=== PATIENT | male | born 1990 | race Two or more races ===

== ENCOUNTER 2019-08-04 13:44 | Emergency (ER) | payer SELFPAY ==
--- NOTE | 2019-08-04 13:57 | EDM.PDOC ---
ED HPI GENERAL MEDICAL PROBLEM - General Stated Complaint: RT WRIST PAIN Time Seen by Provider: 08/04/19 13:54 Source of Information: Reports: Patient History Limitations: Reports: No Limitations - History of Present Illness INITIAL COMMENTS - FREE TEXT/NARRATIVE: Royal complains of rt wrist pain for 1.5 years. This has been worse last few days,radiation the forearm,causing numbness of his hand.Aleve and other otc NSAIDs have not provided relief. right wrist/hand Pain Score (Numeric/FACES): 7 - Related Data Allergies Allergy/AdvReac Type Severity Reaction Status Date / Time No Known Allergies Allergy Verified 08/04/19 14:34 Home Meds: Home Meds predniSONE 20 mg PO BID #10 tab 08/04/19 [Rx] Social & Family History - Family History Family Medical History: Noncontributory - Caffeine Use Caffeine Use: Reports: Coffee, Soda Review of Systems - Review of Systems Review Of Systems: Comprehensive ROS is negative, except as noted in HPI. ED EXAM, GENERAL - Physical Exam Exam: See Below Exam Limited By: No Limitations General Appearance: Alert, WD/WN Nose: Normal Inspection Extremities: Normal Inspection, Normal Range of Motion, Normal Capillary Refill , Arm Pain, Other (Phalen's test positive) Neurological: Alert, CN II-XII Intact Psychiatric: Normal Affect Skin Exam: Warm Course - Vital Signs Last Recorded V/S: Last Vital Signs Temp 97.3 F 08/04/19 14:00 Pulse 92 08/04/19 14:00 Resp 14 08/04/19 14:00 BP 127/74 08/04/19 14:00 Pulse Ox 99 08/04/19 14:00 Departure - Departure Time of Disposition: 14:35 Disposition: Home, Self-Care 01 Condition: Good Clinical Impression: Carpal tunnel syndrome - Discharge Information Prescriptions: predniSONE 20 mg PO BID #10 tab Instructions: Carpal Tunnel Syndrome Referrals: PCP,None [Primary Care Provider] - (See PCP in 1 week) Sepsis Event Note - Focused Exam Vital Signs: Vital Signs Temp Pulse Resp BP Pulse Ox 08/04/19 14:00 97.3 F 92 14 127/74 99 Date Exam was Performed: 08/04/19 Time Exam was Performed: 14:35 - Problem List & Annotations (1) Carpal tunnel syndrome SNOMED Code(s): 27919144 Code(s): G56.00 - CARPAL TUNNEL SYNDROME, UNSPECIFIED UPPER LIMB Status: Acute Current Visit: Yes Qualifiers: Laterality: right Qualified Code(s): G56.01 - Carpal tunnel syndrome, right upper limb - Problem List Review Problem List Initiated/Reviewed/Updated: Yes - Assessment/Plan Plan: Brace,Prednisone and follow up
== END 2019-08-04 14:20 | disposition home or self-care (01) ==
LOC: FB.ED 13:44
DX: G56.01 Carpal tunnel syndrome, right upper limb (principal)
CPT/HCPCS: 99283

== ENCOUNTER 2020-10-12 08:18 | Emergency (ER) | payer SELFPAY ==
[2020-10-12] MEDS ORDERED: Sertraline 100 MG Tab PO STA (08:26)
[2020-10-12] MEDS ORDERED: LORazepam 2 MG/ML SDV IM STA (08:26)
--- NOTE | 2020-10-12 08:35 | EDM.PDOC ---
ED HPI GENERAL MEDICAL PROBLEM - General Stated Complaint: ANXIETY Time Seen by Provider: 10/12/20 08:20 Source of Information: Reports: Patient History Limitations: Reports: No Limitations - History of Present Illness INITIAL COMMENTS - FREE TEXT/NARRATIVE: Patient presented to the ED because of an anxiety attack. He is hyperventilating and c/o dyspnea, perioral and peripheral numbness and tingling especially on martinez his hands. He was here 4 days ago for the same problem. He has a history of anxiety and depression and quit taking his Zoloft and Vistaril 5 months ago. Denies having any chest pain, nausea,vomiting. - Related Data Allergies Allergy/AdvReac Type Severity Reaction Status Date / Time No Known Allergies Allergy Verified 10/12/20 08:31 Home Meds: Home Meds predniSONE 20 mg PO BID #10 tab 08/04/19 [Rx] Sertraline [Zoloft] 100 mg PO DAILY #90 tab 10/12/20 [Rx] hydrOXYzine pamoate [Vistaril] 50 mg PO Q8H PRN #90 cap 10/12/20 [Rx] Social & Family History - Family History Family Medical History: No Pertinent Family History - Caffeine Use Caffeine Use: Reports: Coffee, Soda ED ROS GENERAL - Review of Systems Review Of Systems: See Below Constitutional: Reports: No Symptoms HEENT: Reports: No Symptoms Respiratory: Reports: Shortness of Breath Cardiovascular: Reports: No Symptoms Endocrine: Reports: No Symptoms GI/Abdominal: Reports: No Symptoms : Reports: No Symptoms Musculoskeletal: Reports: No Symptoms Skin: Reports: No Symptoms Neurological: Reports: No Symptoms, Gait Disturbance ED EXAM, GENERAL - Physical Exam Exam: See Below Exam Limited By: No Limitations General Appearance: Alert, No Apparent Distress Ears: Normal External Exam, Normal Canal Nose: Normal Inspection, Normal Mucosa Throat/Mouth: Normal Inspection, Normal Lips, Normal Teeth Head: Atraumatic, Normocephalic Neck: Normal Inspection, Supple, Non-Tender, Full Range of Motion Respiratory/Chest: No Respiratory Distress, Lungs Clear, Normal Breath Sounds Cardiovascular: Normal Peripheral Pulses, Regular Rate, Rhythm, No Edema, No Gallop GI/Abdominal: Normal Bowel Sounds, Soft, Non-Tender, No Organomegaly, No Distention, No Abnormal Bruit Back Exam: Normal Inspection, Full Range of Motion Extremities: Normal Inspection, Normal Range of Motion, Non-Tender #1 Interpretation EKG Date: 10/12/20 Time: 08:19 Rhythm: NSR Rate (Beats/Min): 98 [place]: Normal P-Wave: Present QRS: Normal ST-T: Normal QT: Normal Comparison: NA - No Prior EKG EKG Interpretation Comments: NSR Course - Vital Signs Text/Narrative:: EKG result was reviewed and discussed with patient EKG_NSR Ativan 1 mg IM x1 Vistaril 50 mg PO x1 Zoloft 100 mg PO x1 - Orders/Labs/Meds Meds: Medications Discontinued Medications Generic Name Dose Route Start Last Admin Trade Name Freq PRN Reason Stop Dose Admin Hydroxyzine Pamoate 50 mg 10/12/20 08:35 10/12/20 08:45 Hydroxyzine Pamoate 50 Mg Cap PO 10/12/20 08:36 50 mg NOW STA Administration Lorazepam 1 mg 10/12/20 08:26 10/12/20 08:36 Lorazepam 2 Mg/Ml Sdv IM 10/12/20 08:27 1 mg NOW STA Administration Sertraline HCl 100 mg 10/12/20 08:26 10/12/20 09:17 Sertraline 100 Mg Tab PO 10/12/20 08:27 100 mg NOW STA Administration Departure - Departure Time of Disposition: 09:20 Disposition: Home, Self-Care 01 Condition: Good Clinical Impression: Generalized anxiety disorder, Depression, Panic attack - Discharge Information Prescriptions: hydrOXYzine pamoate [Vistaril] 50 mg PO Q8H PRN #90 cap PRN Reason: Anxiety Sertraline [Zoloft] 100 mg PO DAILY #90 tab Instructions: Generalized Anxiety Disorder, Adult, Major Depressive Disorder, Adult, [id number], Panic Attack, [id number] Additional Instructions: Please read discharged instructions on anxiety/depression and anxiety/panic attack Take Zoloft 100 mg at bed time starting tonight Vistaril 50 mg, 1-2 tablets every 8 hours as needed for anxiety/panic attack Follow up with your primary doctor so he can refer you [place]
== END 2020-10-12 09:45 | disposition home or self-care (01) ==
LOC: FB.ED 08:18
DX: F41.0 Panic disorder [episodic paroxysmal anxiety] (principal); F41.1 Generalized anxiety disorder; F32.9 Major depressive disorder, single episode, unspecified; Z79.899 Other long term (current) drug therapy
CPT/HCPCS: 93005; 96372; 99283; 99283-25; A9270-GY; J2060

== ENCOUNTER 2021-07-16 23:39 | Emergency (ER) | payer SELFPAY ==
[2021-07-16] MEDS ORDERED: Lidocaine 2% Viscous Solution 15 ML UD PO ONE (23:40)
[2021-07-17] MEDS ORDERED: Amoxicillin 500 MG Cap PO ONE (00:02)
[2021-07-17] MEDS ORDERED: Ketorolac 30 MG/ML SDV IM ONE (00:02)
[2021-07-17] MEDS: Lidocaine 2% Viscous Solution 15 ML UD PO ONE ×2 (00:32→05:34)
== END 2021-07-17 00:45 | disposition home or self-care (01) ==
LOC: FB.ED 23:39
DX: K04.7 Periapical abscess without sinus (principal); K02.9 Dental caries, unspecified
CPT/HCPCS: 96372; 99282; 99283; A9270-GY; J1885

== ENCOUNTER 2021-12-04 06:30 | Emergency (ER) | payer SELFPAY ==
[2021-12-04] MEDS: Acetaminophen/HYDROcodone 325-5 MG Tab PO ONE (06:52)
[2021-12-04] MEDS: Ondansetron 4 MG Tab.DIS PO ONE (06:52)
[2021-12-04 07:14] LABS: ESTIMATED GFR 103 mL/min (>60)
[2021-12-04] MEDS: Alum Hydroxide/Mag Hydroxide 15 ML, Lidocaine 2% 15 ML PO ONE ×2 (07:55)
[2021-12-04] MEDS: Lidocaine 2% Viscous Solution 15 ML UD ONE (07:56)
== END 2021-12-04 08:30 | disposition home or self-care (01) ==
LOC: FB.ED 06:30
DX: K29.70 Gastritis, unspecified, without bleeding (principal); K29.80 Duodenitis without bleeding; R11.2 Nausea with vomiting, unspecified; F17.210 Nicotine dependence, cigarettes, uncomplicated; E66.9 Obesity, unspecified; Z86.16 Personal history of COVID-19; Z68.31 Body mass index [BMI] 31.0-31.9, adult
CPT/HCPCS: 36415; 80053; 81001; 83690; 85025; 86140; 99282; 99284; A9270; Q0162

== ENCOUNTER 2022-02-28 21:54 | Emergency (ER) | payer SELFPAY ==
[2022-02-28] MEDS ORDERED: Acetaminophen/HYDROcodone 325-5 MG Tab PO ONE (21:55)
[2022-02-28] MEDS ORDERED: Sodium Chloride 0.9% 10 ML Syringe FLUSH PRN (22:22)
[2022-02-28] MEDS ORDERED: Morphine 4 MG/ML VIAL IVPUSH ONE (22:23)
[2022-02-28 22:47] LABS: ESTIMATED GFR 121 mL/min (>60)
[2022-02-28] MEDS ORDERED: Ketorolac 30 MG/ML SDV IVPUSH STA (22:58)
== END 2022-02-28 23:10 | disposition home or self-care (01) ==
LOC: FB.ED 21:54
DX: K80.20 Calculus of gallbladder without cholecystitis without obstruction (principal); I10 Essential (primary) hypertension; F17.210 Nicotine dependence, cigarettes, uncomplicated; E66.9 Obesity, unspecified; Z86.16 Personal history of COVID-19; Z68.32 Body mass index [BMI] 32.0-32.9, adult
CPT/HCPCS: 36415; 80053; 82150; 83690; 85025; 96374; 96375; 99284; A9270; J1885; J2270; J3490

== ENCOUNTER 2022-03-03 22:02 | Emergency (ER) | payer SELFPAY ==
[2022-03-03] MEDS ORDERED: Ondansetron 4 MG Tab.DIS PO ONE (22:37)
[2022-03-03] MEDS ORDERED: Acetaminophen/oxyCODONE 325-5 MG Tab PO STA (22:37)
[2022-03-03] MEDS ORDERED: Ketorolac 30 MG/ML SDV IM STA (22:37)
== END 2022-03-03 23:42 | disposition home or self-care (01) ==
LOC: FB.ED 22:02
DX: K80.20 Calculus of gallbladder without cholecystitis without obstruction (principal); I10 Essential (primary) hypertension; E66.9 Obesity, unspecified; Z86.16 Personal history of COVID-19
CPT/HCPCS: 96372; 99283; A9270-GY; J1885; Q0162

== ENCOUNTER 2022-07-28 16:06 | Emergency (ER) | payer MEDICAID ==
[2022-07-28] MEDS ORDERED: Sodium Chloride 0.9% 10 ML Syringe FLUSH PRN (16:31)
[2022-07-28] MEDS: Sodium Chloride 0.9% 1,000 ML IV SCH (16:40)
[2022-07-28] MEDS: Acetaminophen 500 MG Tab PO ONE (16:49)
[2022-07-28] MEDS: Acetaminophen 500 MG Tab ONE (17:07)
[2022-07-28] MEDS: Diltiazem 25 MG/5 ML SDV IVPUSH STA (17:09)
[2022-07-28] MEDS: Diltiazem 25 MG/5 ML SDV IVPUSH ONE (17:09)
[2022-07-28 17:32] LABS: ESTIMATED GFR 102 mL/min (>60)
[2022-07-28 17:57] LABS: CORONAVIRUS COVID-19 NAA NEGATIVE (NEGATIVE)
[2022-07-28] MEDS: Metoprolol Tartrate 50 MG Tab PO ONE (18:43)
== END 2022-07-28 19:20 | disposition home or self-care (01) ==
LOC: FB.ED 16:06
DX: E86.0 Dehydration (principal); B34.9 Viral infection, unspecified; R07.9 Chest pain, unspecified; R00.2 Palpitations; F19.10 Other psychoactive substance abuse, uncomplicated; I10 Essential (primary) hypertension; E66.9 Obesity, unspecified; Z68.36 Body mass index [BMI] 36.0-36.9, adult; Z86.16 Personal history of COVID-19; Z20.822 Contact with and (suspected) exposure to COVID-19
CPT/HCPCS: 0240U; 36415; 71045; 80053; 80307; 81001; 83605; 83735; 84484; 85025; 86140; 87040; 93005; 96360; 99285; A9270; J3490; J7030

== ENCOUNTER 2022-12-18 16:06 | Emergency (ER) | payer MEDICAID | END 2022-12-18 17:05 | disposition home or self-care (01) | LOC: FB.ED 16:06 | DX: Z98.52 Vasectomy status (principal); I10 Essential (primary) hypertension; Z86.16 Personal history of COVID-19 | CPT/HCPCS: 99283 ==

== ENCOUNTER 2023-01-18 21:35 | Emergency (ER) | payer OTHER, MEDICAID | END 2023-01-18 22:00 | disposition home or self-care (01) | LOC: FB.ED 21:35 | DX: F10.929 Alcohol use, unspecified with intoxication, unspecified (principal); I10 Essential (primary) hypertension; E66.9 Obesity, unspecified; Z68.33 Body mass index [BMI] 33.0-33.9, adult; Z86.16 Personal history of COVID-19; Z79.01 Long term (current) use of anticoagulants; Z79.899 Other long term (current) drug therapy | CPT/HCPCS: 99283; 99284 ==

== ENCOUNTER 2023-04-28 15:19 | Emergency (ER) | payer MEDICAID, OTHER ==
[2023-04-28] MEDS ORDERED: Cyclobenzaprine 10 MG Tab PO ONE ×2 (15:20→15:42)
[2023-04-28] MEDS ORDERED: Acetaminophen/HYDROcodone 325-5 MG Tab PO ONE (15:41)
[2023-04-28] MEDS ORDERED: Lidocaine 4% 1 each Patch TOP PRN (16:43)
== END 2023-04-28 17:00 | disposition home or self-care (01) ==
LOC: FB.ED 15:19
DX: S46.912A Strain of unspecified muscle, fascia and tendon at shoulder and upper arm level, left arm, initial encounter (principal); I10 Essential (primary) hypertension; E66.9 Obesity, unspecified; Z86.16 Personal history of COVID-19; Z79.899 Other long term (current) drug therapy; Z68.34 Body mass index [BMI] 34.0-34.9, adult
CPT/HCPCS: 73030; 99283; A9270

== ENCOUNTER 2024-03-08 22:59 | Emergency (ER) | payer MEDICAID ==
[2024-03-08] MEDS ORDERED: LORazepam 0.5 MG Tab PO ONE (23:00)
== END 2024-03-08 23:56 | disposition home or self-care (01) ==
LOC: FB.ED 22:59
DX: F41.1 Generalized anxiety disorder (principal); R07.9 Chest pain, unspecified; I10 Essential (primary) hypertension; E66.9 Obesity, unspecified; Z86.16 Personal history of COVID-19; Z90.49 Acquired absence of other specified parts of digestive tract; Z79.899 Other long term (current) drug therapy; Z68.27 Body mass index [BMI] 27.0-27.9, adult
CPT/HCPCS: 93005; 93010; 99283; 99284; A9270